=== PATIENT | male | born 1970 | race Caucasian/White ===

== ENCOUNTER → 2017-10-26 | Outpatient (CLI) | payer BC ==
[~2017-10-26] MED LIST: ASTELIN NASAL S34 ML NS; LORTAB 5/500 501 TAB PO; NASACORT AQ N16.5 GM NS; NORCO 325 MG-51 TAB PO; PRILOSEC 20MG20 MG PO; ZOMETA4 MG/5 ML
== END ==
LOC: COL.RAD 08:02
DX: R74.8 Abnormal levels of other serum enzymes (principal)

== ENCOUNTER → 2017-12-22 | Outpatient (CLI) | payer BC | LOC: ZCOL.LAB 14:28 | DX: K14.0 Glossitis (principal) ==